=== PATIENT | male | born 1955 | race Caucasian/White ===

== ENCOUNTER 2021-03-24 07:51 | Emergency (ER) | payer OTHER, SELFPAY ==
[2021-03-24 07:52] VITALS: PULSE 124; RESP 18; TEMP 36.3; O2SAT 99; BMI 28.4
[2021-03-24] MEDS: Ondansetron 4 MG/2 ML Vial IV (08:05)
[2021-03-24] MEDS: Ketorolac 30 MG/ML Syringe IV (08:05)
[2021-03-24] MEDS: 0.9% Normal Saline 1,000 ML 500 ML IV (08:08)
--- NOTE | 2021-03-24 08:09 | EDS_ITS ---
HPI History of Present Illness Chief Complaint: Flank Pain Informant: patient Narrative Narrative: Patient presents with left flank pain. He was awoken this morning at approximately 6 AM with pain in his posterior left back area. It is now moved around to the front of his left lower quadrant. He describes it as a stabbing. He has had severe nausea but no actual vomiting. He did not note a change in his urine. He has not been lightheaded or dizzy. He has never had this before. No history of kidney stones or diverticular disease. He is on Xarelto due to a history of heart disease and stents. Nothing makes the pain better or worse. [facility] Medical History HTN (hypertension) Home Medications ondansetron 4 mg PO Q8H PRN #10 tab 03/24/21 [Rx Last Taken Unknown] oxycodone-acetaminophen [Percocet] 1 tab PO Q6H PRN 3 Days #10 tab 03/24/21 [Rx Last Taken Unknown] tamsulosin [Flomax] 0.4 mg PO DAILY #7 cap 03/24/21 [Rx Last Taken Unknown] Allergy/AdvReac Type Severity Reaction Status Date / Time No Known Allergies Allergy Verified 03/24/21 07:55 Surgical History History of cardiac cath History of heart artery stent Social History Smoking Status: Never smoker ROS ROS ED Constitutional Constitutional ED: Denies chills or fever(s) Cardiovascular Cardiovascular: Denies chest pain or palpitations Respiratory/Chest Respiratory/Chest: Denies cough or dyspnea Gastrointestinal Gastrointestinal: Reports abdominal pain and nausea; Denies diarrhea or vomiting Genitourinary Genitourinary ED: Denies dysuria or hematuria Musculoskeletal Musculoskeletal: Reports back pain and other Details: Pain started in the back and is now moved around to the left lower quadrant area ; Denies arthralgias, myalgias or neck pain Integumentary Denies rash Neurologic Neurologic: Denies paresthesias or weakness Psychiatric Psychiatric: Denies depression Endocrine Endocrinology: Denies polydipsia or polyuria Allergic/Immunologic Allergic/Immunologic ED: Denies urticaria EXAM Physical Exam Const Vital Signs: 03/24/21 07:52 Temperature 97.4 F L Temperature Source Temporal Pulse Rate 124 H Respiratory Rate 18 Pulse Ox 99 Oxygen Delivery Method Room Air Patient is rolling on the bed a little bit [id number]. He looks very uncomfortable. Positive well nourished and well developed General Appearance ED: well developed; Negative for NAD HEENT Reports moist mucous membranes Eyes General Eye ED: Negative for pale conjunctiva Neck no JVD Resp normal respiratory effort Cardio regular rate and regular rhythm GI normal to inspection, nondistended, normoactive bowel sounds and non-tender GI Narrative: Despite his significant discomfort, there is not a change with palpation. There is no palpable notable tenderness. Palpation: soft Extremity normal to inspection Extremity Narrative: Normal peripheral pulses. No swelling. Neuro oriented x3 Sensorium / Orientation: alert Psych mental status grossly normal Skin no rashes or lesions noted MDM MDM MDM Narrative Medical decision making narrative: I checked him to see the patient but he was over at CAT scan. His son stated that his pain was still there even about 10 minutes after the morphine. I went back to check him when he came back from CAT scan. At this time his pain is doing better. He states he still feels it in aches. But is nowhere near as bad. He looks calm and relaxed. He is thirsty and his nausea is gone. His blood work is overall unremarkable. I am waiting for final read on his CT. I looked at his images. He does have some hydronephrosis on the left with stranding and a small stone that looks like it is really perched right at the junction of the ureter and the bladder on the left. It looks mostly within the bladder at this time. CT does show findings consistent with 2 mm stone and the stone looks to be in the bladder. Patient's checked again. He states even the sharp pain in his left lower quadrant is gone. He just has mild soreness. I did discuss reasons to return including fevers chills pain nausea vomiting or other concerns. I will still get him pain meds as I suspect he will have some lingering pain. He can strain urine. I will start Flomax to increase chance of passage. I also found out he has been drinking more tea recently which we recommend he decrease. Lab Data Labs: Laboratory Results - last 24 hr 03/24/21 03/24/21 08:00 08:00 WBC 8.9 RBC 5.34 Hgb 15.7 Hct 45.5 MCV 85.2 MCH 29.4 MCHC 34.5 RDW Std Deviation 39.4 RDW Coeff of Robert 12.8 Plt Count 340 MPV 9.9 Immature Gran % (Auto) 0.300 Neut % (Auto) 64.2 Lymph % (Auto) 24.0 [place] % (Auto) 9.0 Eos % (Auto) 2.1 Baso % (Auto) 0.4 Absolute Neuts (auto) 5.7 Absolute Lymphs (auto) 2.14 Nucleated RBC % 0 Sodium 142 Potassium 3.5 Chloride 106 Carbon Dioxide 23.0 Anion Gap 13 BUN 15 Creatinine 1.18 Estim Creat Clear Calc 69.42 Est GFR (MDRD) Af Amer 80 Est GFR (MDRD) Non-Af 66 BUN/Creatinine Ratio 12.7 Glucose 138 H Calcium 9.0 Radiography Diagnostic Testing: Clinical Impression(s) from Imaging Studies Abdomen/Pelvis CT 03/24/21 08:09 IMPRESSION: Left hydronephrosis and hydroureter with perinephric stranding secondary to a recently passed calculus which is at the base of the bladder on the left side. Small umbilical hernia and small right inguinal hernia containing fat. Prostatic calcification. Electronically Signed: Faustino Decker MD at 8:57 EST , Service support , Discharge Plan Triage Chief Complaint: Flank Pain ED Provider: Ahsan Seals Dx/Rx/DC Orders Clinical Impression: Kidney stone on left side Instructions: ED Kidney Stone w/ Colic Prescriptions: New oxycodone-acetaminophen [Percocet] 5-325 mg tablet 1 tab PO Q6H PRN (Reason: pain) 3 Days Qty: 10 RF: 0 ondansetron 4 mg tablet,disintegrating 4 mg PO Q8H PRN (Reason: nausea and vomiting) Qty: 10 RF: 0 tamsulosin [Flomax] 0.4 mg capsule 0.4 mg PO DAILY Qty: 7 RF: 0 Referrals: David Kuo MD [STAFF PHYSICIAN] - 3-5 Days if not improving Disposition Disposition: Home, Self Care
--- NOTE | 2021-03-24 08:09 | CT_ITS ---
STUDY: CT ABDOMEN AND PELVIS WITHOUT CONTRAST REASON FOR EXAM: Male, 65 years old. Abdominal pain. RADIATION DOSAGE (If Supplied By Facility): CTDIvol = ( 12.11 ) mGy, DLP = ( 701.92 ) mGycm TECHNIQUE: Transaxial images were obtained from the dome of the diaphragm to the symphysis pubis without oral contrast, and without intravenous contrast. Sagittal and coronal images were reconstructed. Individualized dose optimization techniques were used for this CT. COMPARISON: None. FINDINGS: Calcified subcarinal lymph nodes. Coronary artery calcification. Normal liver. Normal gallbladder and extrahepatic biliary system. Normal spleen. Normal pancreas. Normal bilateral adrenal glands. Normal right kidney. There is engorgement of the left kidney. Mild degree of left perinephric stranding. There is evidence of left hydronephrosis and left hydroureter down to the ureterovesical junction. A 2 mm calculus is seen at the base of the bladder on the left side suggestive of a recently passed left ureteral calculus. There is a small hiatal hernia. Normal small intestine. Normal colon. The appendix is visualized and appears normal. There is scattered atherosclerotic calcification of the abdominal aorta, without a demonstrated aneurysm. Normal inferior vena cava. Normal retroperitoneum. Normal urinary bladder. There is enlargement of the prostate gland. It measures 4.4 cm x 4.5 cm. Central prostatic calcifications are seen. There is a small umbilical hernia containing fat. Small right inguinal hernia containing fat. There are mild degenerative changes of the visualized lumbar spine. CT/Abdomen/Pelvis without Cont IMPRESSION: Left hydronephrosis and hydroureter with perinephric stranding secondary to a recently passed calculus which is at the base of the bladder on the left side. Small umbilical hernia and small right inguinal hernia containing fat. Prostatic calcification. Electronically Signed: Faustino Decker MD at 8:57 EST , Service support ,
[2021-03-24 08:13] LABS: Absolute Lymphocyte Count 2.14 X10^3/uL (0.83-4.51); Absolute Neutrophil Count 5.7 X10^3/uL (2.0-7.7); Basophil# 0.04 X10^3/uL; Basophil% 0.4 % (0-1); Eosinophil# 0.19 X10^3/uL; Eosinophils% 2.1 % (0-5); Hematocrit 45.5 % (40-54); Hemoglobin 15.7 g/dL (13.0-16.5); Lymphocyte # 2.14 X10^3/ul (0.83-4.51); Mean Corp Hgb Conc 34.5 g/dL (32-36); Mean Corpuscular Hgb 29.4 pg (27.0-32.0); Mean Corpuscular Volume 85.2 fL (80-94); Mean Platelet Vol. 9.9 fl (6.2-12.0); NRBC Flagged by Analyzer 0 % (0-5); Neutrophil # 5.73 X10^3/uL (2.7-7.7); Neutrophil % 64.2 % (47-70); Platelet Count 340 K/mm3 (150-450); RBC Distribution Width CV 12.8 % (11.6-14.6); RBC Distribution Width SD 39.4 fl (35.1-43.9); Red Blood Count 5.34 M/mm3 (4.6-6.2); White Blood Count 8.9 K/mm3 (4.4-11.0)
[2021-03-24] MEDS: Morphine 4 MG/ML Syringe IV (08:13)
[2021-03-24 08:23] LABS: Anion Gap 13 (5-15); BUN 15 mg/dL (7-18); BUN/Creat Ratio 12.7 RATIO (10-20); Chloride 106 mmol/L (98-107); Creatinine, Serum 1.18 mg/dL (0.70-1.30); EST Glomerular Filtration Rate 66 mL/min (>60); Est Glom Filt Rate - Afr Amer 80 mL/min (>60); Estimated Creatinine Clearance 69.42 ml/min; Glucose 138 mg/dL (74-106); Potassium 3.5 mmol/L (3.5-5.1); Sodium Level 142 mmol/L (136-145)
== END 2021-03-24 10:30 | disposition home or self-care (01) ==
PROVIDERS: Emergency Provider Emergency Medicine
DX: N13.2 Hydronephrosis with renal and ureteral calculous obstruction (principal); I51.9 Heart disease, unspecified; Z95.5 Presence of coronary angioplasty implant and graft; Z79.01 Long term (current) use of anticoagulants
CPT/HCPCS: 74176; 80048; 85025; 96361; 96374; 96375; 99283; J7030; A4216; J2405

== ENCOUNTER 2021-04-06 17:59 | Outpatient (CLI) | payer OTHER, SELFPAY ==
[2021-04-06 18:26] VITALS: BP 141/99; PULSE 72; RESP 16; TEMP 36.8; O2SAT 99; BMI 29.2
[2021-04-06] MEDS: 0.9% Saline Lock 10 ML Syringe IV (18:41)
[2021-04-06 19:14] VITALS: BP 140/90; PULSE 61; RESP 16; TEMP 36.9; O2SAT 98
[2021-04-06 20:09] VITALS: BP 156/91; PULSE 70; RESP 16; TEMP 36.9; O2SAT 100
== END 2021-04-06 20:15 | disposition home or self-care (01) ==
LOC: MS3OUT 18:00 → MS3 18:00
PROVIDERS: Referring Provider Nurse Practitioner Adult Health; Visit Provider Nurse Practitioner Adult Health
DX: Z23 Encounter for immunization (principal); U07.1 COVID-19
CPT/HCPCS: J7050; M0243; A4216; Q0244

== ENCOUNTER 2023-01-19 16:07 | Emergency (ER) | payer MEDICARE, OTHER, SELFPAY ==
[2023-01-19] VITALS (7 sets, daily range): BP systolic 137–155; BP diastolic 69–87; PULSE 60–69; RESP 15–18; TEMP 36.1; O2SAT 98; BMI 28.5
--- NOTE | 2023-01-19 16:21 | NURSING ---
NO OLD EKG
--- NOTE | 2023-01-19 16:29 | RAD_ITS ---
INDICATION: chest pain EXAMINATION/TECHNIQUE: X-RAY - XR Chest 1 View COMPARISON: FINDINGS: LINES/DEVICES: None. LUNGS: No consolidation, edema or effusion. No pneumothorax. MEDIASTINUM AND CARDIOVASCULAR STRUCTURES: Cardiac silhouette not enlarged. Central airways and mediastinal contour are unremarkable. BONES AND SOFT TISSUES: Unremarkable. RAD/Chest 1 View (Portable) IMPRESSION: No radiographic evidence of acute cardiopulmonary disease. Electronically Signed: Emiliano Crooks DO at 16:39 EDT Reading Location ID and State: [facility] / [place] Tel [phone], Service support ,
[2023-01-19 16:45] LABS: Basophil# 0.05 X10^3/uL; Basophil% 0.5 % (0-1); Eosinophil# 0.23 X10^3/uL; Eosinophils% 2.2 % (0-5); Hemoglobin 14.6 g/dL (13.0-16.5); Lymphocyte % 19.3 % (19-41); Mean Corp Hgb Conc 33.2 g/dL (32-36); Mean Corpuscular Hgb 29.5 pg (27.0-32.0); Mean Corpuscular Volume 88.9 fL (80-94); Mean Platelet Vol. 10.7 fl (6.2-12.0); Monocyte# 1.02 X10^3/uL; Monocyte% 9.9 % (0-10); NRBC Flagged by Analyzer 0 % (0-5); Neutrophil # 7.01 X10^3/uL (2.7-7.7); Neutrophil % 67.7 % (47-70); Platelet Count 322 K/mm3 (150-450); RBC Distribution Width CV 12.8 % (11.6-14.6); RBC Distribution Width SD 41.6 fl (35.1-43.9); Red Blood Count 4.95 M/mm3 (4.6-6.2); White Blood Count 10.4 K/mm3 (4.4-11.0)
[2023-01-19 17:01] LABS: Anion Gap 3 (5-15); BUN 19 mg/dL (7-18); BUN/Creat Ratio 18.4 RATIO (10-20); Calcium,Total 8.9 mg/dL (8.5-10.1); Chloride 109 mmol/L (98-107); Creatinine, Serum 1.03 mg/dL (0.70-1.30); EST Glomerular Filtration Rate 77 mL/min (>60); Est Glom Filt Rate - Afr Amer 93 mL/min (>60); Estimated Creatinine Clearance 75.14 ml/min; Glucose 99 mg/dL (74-106); Potassium 4.2 mmol/L (3.5-5.1); Sodium Level 138 mmol/L (136-145); Troponin-I HS (w/2H Reflex) 10 pg/mL (3.0-78.0)
[2023-01-19 18:34] LABS: Reflex Troponin-HS? (from REC) Y
[2023-01-19 19:07] LABS: Troponin-I HS 8 pg/mL (3.0-78.0)
--- NOTE | 2023-01-19 20:47 | ED.VIS.CHEST ---
HPI History of Present Illness Chief Complaint: Chest Pain Narrative Narrative: 67-year-old male with history of CAD, hypertension, hyperlipidemia, cardiac stent presenting with left upper chest pain and left shoulder pain which has been present for 3 days. It has not really changed over the last 3 days. It has been constant. Patient was noted by family to be very sweaty yesterday when mixing some grout. Patient himself admits that this was a hard work and he did it for about an hour. He denies cough, fever, shortness of breath. He states that this pain did not increase when he was having the symptoms. He states he did try a heating pad on the left shoulder which made the symptoms worse. Denies lightheadedness, dizziness. PFSH PFS Medical History COVID-19 HTN (hypertension) Home Medications amlodipine 2.5 mg tablet 2.5 mg PO DAILY 03/15/21 [History Last Taken Unknown] aspirin 81 mg tablet,delayed release (Adult Aspirin Regimen) 81 mg PO DAILY 03/15/21 [History Last Taken Unknown] atenolol 25 mg tablet 25 mg PO DAILY 03/15/21 [History Last Taken Unknown] atorvastatin 10 mg tablet 10 mg PO DAILY 03/15/21 [History Last Taken Unknown] irbesartan 75 mg tablet 75 mg PO DAILY 03/15/21 [History Last Taken Unknown] dexamethasone 4 mg tablet (Decadron) 4 mg PO DAILY #5 tabs 04/05/21 [Rx Last Taken Unknown] isosorbide mononitrate 30 mg tablet,extended release 24 hr 30 mg PO DAILY 04/06/21 [History Last Taken Unknown] Allergy/AdvReac Type Severity Reaction Status Date / Time No Known Allergies Allergy Verified 01/19/23 16:08 Surgical History History of cardiac cath History of heart artery stent Social History Smoking Status: Never smoker ROS ROS ED Constitutional Constitutional ED: Denies chills, fever(s) or sweats Eyes Eyes: Denies blurry vision or change in vision ENT ENT ED: Denies ear pain or sore throat Cardiovascular Cardiovascular: Reports chest pain; Denies palpitations or racing heartbeat Respiratory/Chest Respiratory/Chest: Denies cough, dyspnea or sputum Gastrointestinal Gastrointestinal: Denies abdominal pain, constipation, diarrhea, nausea or vomiting Genitourinary Genitourinary ED: Denies dysuria, hematuria or urinary frequency Musculoskeletal Musculoskeletal: Reports other Details: Shoulder pain ; Denies arthralgias, myalgias or neck pain Integumentary Denies abscess, Abrasions or rash Neurologic Neurologic: Denies headache(s), paresthesias or weakness Psychiatric Psychiatric: Denies anxiety, depression, suicidal ideation or suicidal thoughts Endocrine Endocrinology: Denies polydipsia or polyuria EXAM Physical Exam Const Vital Signs: 01/19/23 16:09 01/19/23 16:16 01/19/23 16:32 Temperature 97 F L Temperature Source Temporal Pulse Rate 69 Respiratory Rate 18 Respiratory Effort Normal Non-Labored Blood Pressure 154/72 H Blood Pressure Mean 99 Pulse Ox 98 98 Oxygen Delivery Method Room Air Room Air 01/19/23 17:07 01/19/23 18:00 01/19/23 19:00 Temperature Temperature Source Pulse Rate 60 62 63 Respiratory Rate 17 17 15 Respiratory Effort Blood Pressure 137/87 H Blood Pressure Mean 103 Pulse Ox 98 98 98 Oxygen Delivery Method Room Air Room Air Room Air 01/19/23 20:00 Temperature Temperature Source Pulse Rate 64 Respiratory Rate 16 Respiratory Effort Blood Pressure 155/69 H Blood Pressure Mean 97 Pulse Ox 98 Oxygen Delivery Method Room Air Positive well nourished General Appearance ED: NAD; Negative for pallor HEENT Reports moist mucous membranes normocephalic and atraumatic Eyes PERRL General Eye ED: Negative for pale conjunctiva Chest Wall inspection of chest normal and palpation of chest normal Resp normal respiratory effort and clear to auscultation bilaterally Cardio regular rate and regular rhythm Extremity normal to inspection General Extremety ED: Negative for edema or pulses abnormal General Extremity: Negative for edema or pulses abnormal Neuro oriented x3 and CN's II-XII intact bilaterally Sensorium / Orientation: awake and alert Motor Exam: strength 5/5 throughout Psych mental status grossly normal Skin no rashes or lesions noted General Skin Exam: Negative for jaundice or pallor Heart Score History: Slightly/Non-Suspicious ECG: Normal Age: </= 45 years Risk Factors: >/= 3 Risk Factors or History of CAD Troponin: </= Normal Limit Score: 2 MDM MDM MDM Narrative Medical decision making narrative: With left upper chest pain. Differential occludes acute coronary syndrome, musculoskeletal pain, pneumonia. PE considered however patient is PERC negative. CBC was obtained to assess a blood cell count, hemoglobin, platelets. BMP to assess renal function electrolytes. High-sensitivity troponin and EKG were obtained to assess for ischemia and dysrhythmia. Chest x-ray was obtained and shows no acute process. EKG shows a sinus rhythm with a ventricular rate of 64 bpm without sign of ischemic change or ectopy on my interpretation. CBC and BMP ultimately unremarkable. Initial high-sensitivity troponin is 10 and delta troponin is 8. HEART score of 2. I recommended that the patient follow-up with his primary application support who is out of town and return precautions were discussed. Patient amenable to this. Impression: 1. Chest pain Lab Data Attestation: I reviewed the patient's lab results. Labs: Laboratory Results - last 24 hr 01/19/23 01/19/23 01/19/23 16:27 17:54 18:30 WBC 10.4 RBC 4.95 Hgb 14.6 Hct 44.0 MCV 88.9 MCH 29.5 MCHC 33.2 RDW Std Deviation 41.6 RDW Coeff of Robert 12.8 Plt Count 322 MPV 10.7 Immature Gran % (Auto) 0.400 Neut % (Auto) 67.7 Lymph % (Auto) 19.3 [place] % (Auto) 9.9 Eos % (Auto) 2.2 Baso % (Auto) 0.5 Absolute Neuts (auto) 7.0 Absolute Lymphs (auto) 2.00 Nucleated RBC % 0 Sodium 138 Potassium 4.2 Chloride 109 H Carbon Dioxide 26.0 Anion Gap 3 L BUN 19 H Creatinine 1.03 Estim Creat Clear Calc 75.14 Est GFR (MDRD) Af Amer 93 Est GFR (MDRD) Non-Af 77 BUN/Creatinine Ratio 18.4 Glucose 99 Calcium 8.9 Troponin I High Sens 10 Cancelled 8 Radiography Diagnostic Testing: Clinical Impression(s) from Imaging Studies Chest X-Ray 01/19/23 16:29 IMPRESSION: No radiographic evidence of acute cardiopulmonary disease. Electronically Signed: Emiliano Crooks DO at 16:39 EDT , Discharge Plan Triage Chief Complaint: Chest Pain ED Provider: Niles Kelly Dx/Rx/DC Orders Instructions: ED Chest Pain, Uncertain Cause Prescriptions: No Action amlodipine 2.5 mg tablet 2.5 mg PO DAILY aspirin [Adult Aspirin Regimen] 81 mg tablet,delayed release (DR/EC) 81 mg PO DAILY atenolol 25 mg tablet 25 mg PO DAILY atorvastatin 10 mg tablet 10 mg PO DAILY irbesartan 75 mg tablet 75 mg PO DAILY dexamethasone [Decadron] 4 mg tablet 4 mg PO DAILY Qty: 5 0RF isosorbide mononitrate 30 mg tablet extended release 24 hr 30 mg PO DAILY Primary Care Provider: Care Physician,No Primary Referrals: Care Physician,No Primary [Primary Care Provider] - Disposition Disposition: Home, Self Care
== END 2023-01-19 20:59 | disposition home or self-care (01) ==
PROVIDERS: Emergency Provider Student in an Organized Health Care Education/Training Program; Visit Provider Student in an Organized Health Care Education/Training Program
DX: R07.9 Chest pain, unspecified (principal); I25.10 Atherosclerotic heart disease of native coronary artery without angina pectoris; E78.5 Hyperlipidemia, unspecified; Z95.5 Presence of coronary angioplasty implant and graft; I10 Essential (primary) hypertension; Z79.899 Other long term (current) drug therapy; Z79.82 Long term (current) use of aspirin
CPT/HCPCS: 71045; 80048; 84484; 85025; 93005; 99284; J7030; A4216

== ENCOUNTER → 2023-12-14 | Outpatient (CLI) | payer MEDICARE, OTHER, SELFPAY ==
[2023-12-14 11:11] LABS: ALB/GLOB Ratio 1.3 RATIO (0.9-2.4); AST(SGOT) 25 U/L (15-37); Alanine Aminotransfer ALT/SGPT 37 U/L (16-61); Albumin, Serum 3.7 g/dL (3.2-5.0); Alkaline Phosphatase 90 U/L (45-117); Anion Gap 5 (5-15); BUN 15 mg/dL (7-18); BUN/Creat Ratio 16.9 RATIO (10-20); Calcium,Total 9.2 mg/dL (8.5-10.1); Chloride 107 mmol/L (98-107); Cholesterol 138 mg/dL (200); Creatinine, Serum 0.89 mg/dL (0.70-1.30); EST Glomerular Filtration Rate 91 mL/min (>60); Est Glom Filt Rate - Afr Amer 110 mL/min (>60); Globulin 2.9 g/dL (2.2-4.2); Glucose 87 mg/dL (74-106); High Density Lipoprotein 51 mg/dL; Protein, Total 6.6 g/dL (6.4-8.2); Sodium Level 140 mmol/L (136-145); Triglycerides 102 mg/dL; Very Low Density Lipoprotein 20 mg/dL (5-40)
== END | disposition home or self-care (01) ==
PROVIDERS: Referring Provider Internal Medicine Cardiovascular Disease; Visit Provider Internal Medicine Cardiovascular Disease
DX: I49.3 Ventricular premature depolarization (principal); R73.9 Hyperglycemia, unspecified; E78.00 Pure hypercholesterolemia, unspecified; I10 Essential (primary) hypertension; I25.10 Atherosclerotic heart disease of native coronary artery without angina pectoris
CPT/HCPCS: 36415; 80053; 80061; 83735; 84443

== ENCOUNTER → 2024-01-02 | Outpatient (CLI) | payer MEDICARE, OTHER, SELFPAY | END | disposition home or self-care (01) | LOC: PSN 07:29 | PROVIDERS: Referring Provider Internal Medicine Cardiovascular Disease; Visit Provider Internal Medicine Cardiovascular Disease | DX: I49.3 Ventricular premature depolarization (principal); E78.5 Hyperlipidemia, unspecified; I10 Essential (primary) hypertension; Z95.5 Presence of coronary angioplasty implant and graft; I25.10 Atherosclerotic heart disease of native coronary artery without angina pectoris | CPT/HCPCS: 93225; 93226 ==

== ENCOUNTER → 2024-01-04 | Outpatient (CLI) | payer MEDICARE, OTHER, SELFPAY ==
--- NOTE | 2024-01-04 06:42 | ECHOD_ITS ---
Reason For Study: CAD/ASHD Procedure This was a 2D Doppler, Color Flow transthoracic echocardiogram. Exam performed in department. Left Ventricle Normal LV size. Mild concentric left ventricular hypertrophy. The left ventricular ejection fraction is 65 %. Normal diastology for age. Right Ventricle Normal right ventricle. Atria The left atrium is moderately enlarged. The right atrium is mildly enlarged. Mitral Valve Mild (1+) mitral valve insufficiency. Tricuspid Valve Trivial tricuspid valve insufficiency. Normal pulmonary artery pressure. Aortic Valve Focal thickening of the left coronary cusp of the aortic valve. No aortic valve stenosis or regurgitation. Pulmonic Valve The pulmonic valve is not well visualized. Great Vessels Normal sized aortic root. Pericardium/Pleural No pericardial effusion. MMode/2D Measurements & Calculations LVIDd: 4.7 cm IVSd: 1.2 cm Ao root diam: 3.5 cm LVIDs: 3.1 cm LVPWd: 1.2 cm RVDd: 3.3 cm FS: 34.4 % LAV(MOD-bp): 60.1 ml LVAd ap4: 34.3 cm2 LVAd ap2: 29.3 cm2 LAV(MOD-bp) Indexed: 28.2 ml/m2 LVLd ap4: 8.5 cm LVLd ap2: 8.2 cm LAV(MOD-sp2): 60.8 ml EDV(MOD-sp4): 111.7 ml EDV(MOD-sp2): 86.3 ml LAV(MOD-sp4): 56.0 ml EDV(sp4-el): 116.7 ml EDV(sp2-el): 88.9 ml LVAs ap4: 19.3 cm2 LVAs ap2: 14.0 cm2 LVLs ap4: 7.0 cm LVLs ap2: 6.6 cm ESV(MOD-sp4): 44.8 ml ESV(MOD-sp2): 27.3 ml ESV(sp4-el): 45.2 ml ESV(sp2-el): 25.2 ml EF(MOD-sp4): 59.9 % EF(MOD-sp2): 68.4 % EF(sp4-el): 61.3 % SV(MOD-sp4): 66.9 ml SV(MOD-sp2): 59.0 ml SV(sp4-el): 71.5 ml LA dimension(2D): 4.5 cm LA A4 area: 19.3 cm2 RA A4 area: 14.8 cm2 TAPSE: 2.2 cm Time Measurements MV dec time: 0.23 sec Doppler Measurements & Calculations MV E max ayden: 56.9 cm/sec Lat Peak E' Ayden: 9.4 cm/sec Med Peak E' Ayden: 7.6 cm/sec MV A max ayden: 67.9 cm/sec E/E' lat: 6.1 E/E' med: 7.5 MV E/A: 0.84 MV V2 max: 79.9 cm/sec MV P1/2t max ayden: 54.0 cm/sec Ao V2 max: 116.4 cm/sec MV max P.6 mmHg MV P1/2t: 60.1 msec Ao max P.4 mmHg MV V2 mean: 48.3 cm/sec MV dec slope: 263.0 cm/sec2 Ao V2 mean: 88.0 cm/sec MV mean P.0 mmHg Ao mean P.3 mmHg MV V2 VTI: 16.8 cm MVA(P1/2t): 3.7 cm2 Ao V2 VTI: 25.1 cm AV (velocity ratio): 0.87 LV V1 max: 83.4 cm/sec PA V2 max: 117.7 cm/sec TR max ayden: 219.4 cm/sec LV V1 max P.8 mmHg PA V2 mean: 75.5 cm/sec TR max P.3 mmHg LV V1 mean P.8 mmHg LV V1 mean: 63.9 cm/sec LV V1 VTI: 21.8 cm ECHO/Echo Complete Interpretation Summary Mild concentric left ventricular hypertrophy. The left ventricular ejection fraction is 65 %. The left atrium is moderately enlarged. The right atrium is mildly enlarged. Mild (1+) mitral valve insufficiency. Focal thickening of the left coronary cusp of the aortic valve. No aortic valve stenosis or regurgitation. Ordering Physician: Leonard Kendrick Referring Physician: OTD Performed By: Arnoldo, Monique, RDCS, RVT
--- NOTE | 2024-01-04 17:51 | STRESSREP_ITS ---
Stress Test Report Exercise myocardial perfusion stress test. 68-year-old man with a history of chest pain Stress protocol: Resting EKG demonstrates normal sinus rhythm with a rate of 67 bpm, occasional PVC resting blood pressure is 156/94 mmHg. The patient exercised according to the regular Issa protocol for a total duration of 8 minutes attaining a maximum heart rate of 133 bpm which was 86% of maximum predicted heart rate; the maximum workload was 10.1 metabolic equivalents. At rest there were no ST or T wave changes noted to suggest ischemia and at peak exercise upsloping ST changes only were noted which did not meet the criteria for ischemia. No clinical angina was noted the test was terminated due to the target heart rate being achieved/fati sulma. The peak blood pressure was 190/90 mmHg. Rate-pressure product was 23,900. Myocardial perfusion protocol. 13.9 mCi of technetium 99m sestamibi was injected at rest. The patient exercised according to regular Issa protocol for total duration of 8 minutes and at peak exercise 41.4 mCi of technetium 99m sestamibi was injected stress images were obtained stress and rest images were reconstructed in comparing the short axis vertical long and horizontal long axis. Gated images were also obtained. Perfusion SPECT analysis: Review of the stress images demonstrate normal uptake of tracer noted in all areas of the myocardium. The resting images similarly demonstrate normal uptake of tracer noted in all areas of the myocardium. No areas of reversibility are noted to suggest ischemia no previous infarct was noted. Gated SPECT analysis: The gated ejection fraction is 60%. Conclusion: Normal exercise myocardial perfusion stress test at a high workload Preserved ejection fraction.
== END | disposition home or self-care (01) ==
LOC: CVS 06:40
PROVIDERS: Referring Provider Internal Medicine Cardiovascular Disease; Visit Provider Internal Medicine Cardiovascular Disease
DX: I25.10 Atherosclerotic heart disease of native coronary artery without angina pectoris (principal); I49.3 Ventricular premature depolarization; Z95.5 Presence of coronary angioplasty implant and graft; E78.00 Pure hypercholesterolemia, unspecified; I10 Essential (primary) hypertension
CPT/HCPCS: 78452; 93017; 93306; A9500; A4216

== ENCOUNTER 2024-05-05 15:56 | Emergency (ER) | payer MEDICARE, OTHER, SELFPAY ==
[2024-05-05 15:57] VITALS: BP 161/113; PULSE 76; RESP 18; TEMP 36.4; O2SAT 97; BMI 29.9
--- NOTE | 2024-05-05 16:13 | CT_ITS ---
STUDY: CT Abdomen And Pelvis W/O Contrast Injection 05/05/2024 5:22 PM REASON FOR EXAM: Male, 68 years old. Abdominal pain left flank pain, no prev hx of ks Individualized dose optimization techniques were used for this CT. COMPARISON: 03/24/21 TECHNIQUE: CT Abdomen And Pelvis W/O Contrast Injection FINDINGS: There are atherosclerotic calcifications of visualized coronary arteries. The visualized portions of the heart are within normal limits. Normal liver. Normal gallbladder and extrahepatic biliary system. Normal spleen. Normal pancreas. Normal bilateral adrenal glands. Stable right parapelvic cyst. Multiple stable left peripelvic cyst. Moderate left hydronephroureter caused by a 3 mm UVJ stone/urinary bladder stone. There are hypodensities in the left kidney. These are consistent for cysts. No follow up required. Non obstructive 2 mm left renal parenchymal stones. Normal visualized stomach. Normal small intestine. Stool throughout the colon. The appendix is visualized and appears normal. There are calcifications of the abdominal aorta. This is consistent for atherosclerotic disease. There is NO abdominal aortic aneurysm. Vascular workup can be obtained based on clinical correlation. Normal inferior vena cava. Subcentimeter mesenteric lymph nodes. Urinary bladder wall has wall thickening. This can be related to a partially contractile state. However, a cystitis is not excluded. Urinalysis should be performed in an effort to exclude cystitis. There are prostatic calcifications. There is an umbilical hernia containing fat. There are diffuse degenerative changes of the visualized lumbar spine. There is bilateral neural foraminal stenosis at L4-5 and L5-S1. CT/Abdomen/Pelvis without Cont IMPRESSION: (NOT LISTED IN ORDER OF SIGNIFICANCE) Stable right parapelvic cyst. Multiple stable left peripelvic cyst. Moderate left hydronephroureter caused by a 3 mm UVJ stone/urinary bladder stone. Nonobstructive left renal stones. Urinary bladder wall has wall thickening. This can be related to a partially contractile state. However, a cystitis is not excluded. Urinalysis should be performed in an effort to exclude cystitis. Electronically Signed: Rick Drake MD at 17:26 EST ,
--- NOTE | 2024-05-05 16:13 | EX.ED.DYSGE1 ---
HPI History of Present Illness Chief Complaint: Flank Pain Detail of Chief Complaint: Left flank pain Informant: patient Narrative Narrative: Patient presents to the emergency department complaint left flank pain that started yesterday. Patient states the pain became more severe today and rated a 7 or 8 out of 10 prior to coming in. Currently rates it a 4 out of 10. He denies urinary symptoms. Has never had pain like this before. He denies nausea or vomiting. Denies fever. No history of kidney stones. Denies back injury. [facility] Medical History Former smoker Prediabetes Dyslipidemia Seasonal allergies Hyperglycemia Pure hypercholesterolemia CAD (coronary artery disease) Laceration of right middle finger BMI 29.0-29.9,adult COVID-19 HTN (hypertension) Home Medications ?Medication ?Instructions ?Recorded ?Last Taken ?Type aspirin 81 mg tablet,delayed 81 mg PO DAILY 03/15/21 Unknown History release (Adult Aspirin Regimen) isosorbide mononitrate 30 mg 30 mg PO DAILY 04/06/21 Unknown History tablet,extended release 24 hr amlodipine 5 mg tablet 5 mg PO DAILY #90 tabs 12/14/23 Unknown Rx atorvastatin 80 mg tablet 80 mg PO DAILY 12/14/23 Unknown History irbesartan 300 mg tablet 300 mg PO DAILY 12/14/23 Unknown History metoprolol succinate 100 mg 100 mg PO DAILY #90 tabs 12/14/23 Unknown Rx tablet,extended release 24 hr hydrocodone-acetaminophen 5-325mg 1 tab PO Q4H PRN PRN Pain 2 days 05/05/24 Unknown Rx 5mg-325mg #10 TABLETS hydrocodone-acetaminophen 5-325mg 1 tab PO Q4H PRN PRN Pain 2 days 05/05/24 Unknown Rx 5mg-325mg #10 TABLETS ondansetron 4 mg disintegrating 4 mg PO Q8H PRN PRN Nausea #10 tabs 05/05/24 Unknown Rx tablet ondansetron 4 mg disintegrating 4 mg PO Q8H PRN PRN Nausea #10 tabs 05/05/24 Unknown Rx tablet Allergy/AdvReac Type Severity Reaction Status Date / Time No Known Allergies Allergy Verified 05/05/24 15:57 Family History (Updated 12/14/23 @ 09:27 by Akanksha Suarez RN) Mother Hypertension CAD (coronary artery disease) Hyperlipidemia Surgical History Hx of colonoscopy with polypectomy (~12/08/22) S/P skin biopsy Hx of vasectomy (~1982) History of heart artery stent (~03/25/20) History of cardiac cath (~03/25/20) Social History (Updated 12/14/23 @ 09:28 by Akanksha Suarez RN) Smoking Status: Former smoker alcohol intake: current alcohol intake frequency: a few times a week Alcohol type: beer substance use type: does not use ROS ROS ED Review of Systems ROS Unobtainable: other Constitutional Constitutional ED: Reports lethargy; Denies chills, fever(s), sweats or weight loss Eyes Eyes: Denies blurry vision, change in vision or diplopia ENT ENT ED: Denies rhinorrhea or sore throat Cardiovascular Cardiovascular: Denies chest pain, orthopnea or racing heartbeat Respiratory/Chest Respiratory/Chest: Denies cough, dyspnea, dyspnea on exertion, orthopnea or sputum Gastrointestinal Gastrointestinal: Denies abdominal pain, diarrhea, nausea or vomiting Genitourinary Genitourinary ED: Denies dysuria, hematuria or urinary frequency Musculoskeletal Musculoskeletal: Reports back pain; Denies arthralgias, myalgias or neck pain Integumentary Denies abscess, Abrasions or rash Neurologic Neurologic: Denies headache(s) or weakness Psychiatric Psychiatric: Denies anxiety, depression or suicidal thoughts Endocrine Endocrinology: Denies polydipsia, polyphagia or polyuria Hematologic/Lymphatic Hematologic/Lymphatic: Denies easy bleeding, easy bruising or lymphadenopathy Allergic/Immunologic Allergic/Immunologic ED: Denies mouth swelling, tongue swelling or urticaria EXAM Physical Exam Const Vital Signs: 05/05/24 15:57 Temperature 97.5 F L Temperature Source Temporal Pulse Rate 76 Respiratory Rate 18 Blood Pressure 161/113 H Blood Pressure Mean 129 Pulse Ox 97 Oxygen Delivery Method Room Air Positive well nourished and well developed General Appearance ED: well developed and NAD HEENT Reports TM's clear and moist mucous membranes normocephalic and atraumatic; Negative for trauma or tenderness Tympanic Membrane ED: Yes TM's clear Eyes PERRL and EOMs intact bilaterally General Eye ED: Negative for pale conjunctiva or scleral icterus Neck no lymphadenopathy, supple and no JVD General: Negative for tenderness Chest Wall inspection of chest normal and palpation of chest normal Chest: Negative for tenderness Resp normal respiratory effort and clear to auscultation bilaterally Effort and Inspection: Negative for respiratory distress or pain with movement Auscultation: Negative for rhonchi, wheezes or diminished lung sounds Cardio regular rate, regular rhythm, S1 normal heart sound, S2 normal heart sound and no murmurs Peripheral Pulses: pulses 2+ throughout GI normal to inspection, nondistended, normoactive bowel sounds, soft to palpation, non-tender, non-distended and no masses Back/Spine no thoracic nor lumbar tenderness Back/Spine Narrative: Positive CVA tenderness on the left Extremity normal to inspection General Extremety ED: Negative for edema General Extremity: Negative for edema Neuro oriented x3, CN's II-XII intact bilaterally, no sensory deficits noted and gait normal Sensorium / Orientation: awake, alert, oriented to person, oriented to place and oriented to time Motor Exam: strength 5/5 throughout and strength abnormal Psych mental status grossly normal Skin no rashes or lesions noted and no wounds MDM MDM MDM Narrative Medical decision making narrative: Patient presents with left flank pain that started yesterday. No history of kidney stones. In the differential would be kidney stone versus diverticulitis versus musculoskeletal back pain. IV line was established. Initially he just wanted something mild for pain and was given Toradol 15 mg IV. He subsequently developed more pain and was given 4 mg of morphine. CBC with differential obtained showed a white count of 12.2 with hemoglobin 15.5 and platelet count of 342. Chemistries unremarkable. Urinalysis was unremarkable. CT scan of the abdomen pelvis showed left hydroureter with 3 mm stone in the left UVJ/bladder. No other significant findings. Discussed results with patient. Given that the stone is almost completely passed into the bladder I feel that given the size it should pass without difficulty. Patient was given another dose of pain medication with Dilaudid 1 mg IV. He will be given urine strainers and a prescription for Zofran as well as [place] for pain. Will be referred to urology for follow-up. Vies return if worsening pain, fever, vomiting, or condition should worsen anyway. Lab Data Attestation: I reviewed the patient's lab results. Labs: Laboratory Results - last 24 hr 05/05/24 16:03 WBC 12.2 H RBC 5.25 Hgb 15.5 Hct 45.5 MCV 86.7 MCH 29.5 MCHC 34.1 RDW Std Deviation 40.8 RDW Coeff of Robert 13.0 Plt Count 342 MPV 10.4 Immature Gran % (Auto) 0.300 Neut % (Auto) 79.3 H Lymph % (Auto) 10.6 L Andrew % (Auto) 8.1 Eos % (Auto) 1.3 Baso % (Auto) 0.4 Absolute Neuts (auto) 9.7 H Absolute Lymphs (auto) 1.30 Nucleated RBC % 0 Sodium 139 Potassium 3.8 Chloride 106 Carbon Dioxide 28.0 Anion Gap 6 BUN 18 Creatinine 1.46 H Estim Creat Clear Calc 58.46 Est GFR (MDRD) Af Amer 62 Est GFR (MDRD) Non-Af 51 L BUN/Creatinine Ratio 12.3 Glucose 103 Calcium 9.1 Total Bilirubin 0.50 AST 28 ALT 46 Alkaline Phosphatase 103 Total Protein 6.8 Albumin 3.9 Globulin 2.9 Albumin/Globulin Ratio 1.3 Urine Color Yellow Urine Clarity Clear Urine pH 6.5 Ur Specific [place] 1.015 Urine Protein 100 H Urine Glucose (UA) Normal Urine Ketones Negative Urine Occult Blood 25 H Urine Nitrite Negative Urine Bilirubin Negative Urine Urobilinogen Normal Ur Leukocyte Esterase Negative Urine RBC 0-5 SEEN Urine WBC 0 SEEN Ur Squamous Epith Cells 0-5 SEEN Urine Bacteria 3+ Urine Mucus 1+ Radiography Diagnostic Testing: Clinical Impression(s) from Imaging Studies Abdomen/Pelvis CT 05/05/24 16:13 IMPRESSION: (NOT LISTED IN ORDER OF SIGNIFICANCE) Stable right parapelvic cyst. Multiple stable left peripelvic cyst. Moderate left hydronephroureter caused by a 3 mm UVJ stone/urinary bladder stone. Nonobstructive left renal stones. Urinary bladder wall has wall thickening. This can be related to a partially contractile state. However, a cystitis is not excluded. Urinalysis should be performed in an effort to exclude cystitis. Electronically Signed: Rick Drake MD at 17:26 EST , Discharge Plan Triage Chief Complaint: Flank Pain ED Provider: Freda Bell Dx/Rx/DC Orders Clinical Impression: Urolithiasis Instructions: ED Kidney Stone with Pain Prescriptions: New hydrocodone-acetaminophen 5-325 mg tablet 1 tab PO Q4H PRN PRN (Reason: Pain) 2 Days Qty: 10 0RF ondansetron 4 mg tablet,disintegrating 4 mg PO Q8H PRN PRN (Reason: Nausea) Qty: 10 0RF hydrocodone-acetaminophen 5-325 mg tablet 1 tab PO Q4H PRN PRN (Reason: Pain) 2 Days Qty: 10 0RF ondansetron 4 mg tablet,disintegrating 4 mg PO Q8H PRN PRN (Reason: Nausea) Qty: 10 0RF No Action aspirin [Adult Aspirin Regimen] 81 mg tablet,delayed release (DR/EC) 81 mg PO DAILY irbesartan 300 mg tablet 300 mg PO DAILY Patient Comments: TAKE 1 TABLET BY MOUTH EVERY DAY atorvastatin 80 mg tablet 80 mg PO DAILY Patient Comments: TAKE 1 TABLET BY MOUTH EVERY DAY metoprolol succinate 100 mg tablet extended release 24 hr 100 mg PO DAILY Qty: 90 3RF amlodipine 5 mg tablet 5 mg PO DAILY Qty: 90 3RF isosorbide mononitrate 30 mg tablet extended release 24 hr 30 mg PO DAILY Primary Care Provider: Care Physician,No Primary Referrals: David Kuo MD [Med Staff - Active Staff] - 5-7 Days Care Physician,No Primary [Primary Care Provider] - Print Language: Romansh Disposition Disposition: Home, Self Care
[2024-05-05] MEDS: Ketorolac 15 MG/ML Vial IV (16:19)
[2024-05-05 16:24] LABS: White Blood Cells 0 SEEN /hpf (0-5)
[2024-05-05 16:33] LABS: Absolute Neutrophil Count 9.7 X10^3/uL (2.0-7.7); Basophil# 0.05 X10^3/uL; Basophil% 0.4 % (0-1); Eosinophil# 0.16 X10^3/uL; Eosinophils% 1.3 % (0-5); Hematocrit 45.5 % (40-54); Hemoglobin 15.5 g/dL (13.0-16.5); Lymphocyte % 10.6 % (19-41); Mean Corp Hgb Conc 34.1 g/dL (32-36); Mean Corpuscular Hgb 29.5 pg (27.0-32.0); Mean Corpuscular Volume 86.7 fL (80-94); Mean Platelet Vol. 10.4 fl (6.2-12.0); Monocyte# 0.99 X10^3/uL; Monocyte% 8.1 % (0-10); NRBC Flagged by Analyzer 0 % (0-5); Neutrophil # 9.69 X10^3/uL (2.7-7.7); Neutrophil % 79.3 % (47-70); Platelet Count 342 K/mm3 (150-450); RBC Distribution Width SD 40.8 fl (35.1-43.9); Red Blood Count 5.25 M/mm3 (4.6-6.2); White Blood Count 12.2 K/mm3 (4.4-11.0)
[2024-05-05 16:35] LABS: Color, Urine Yellow (Yellow); Glucose, Dipstick Normal (Normal); Ketone-Dipstick Negative (Negative); Leukocyte Esterase-Dipstick Negative /ul (Negative); Nitrite-Dipstick Negative (Negative); Occult Blood-Urine 25 /ul (Negative); Protein-Dipstick 100 mg/dl (Negative); Specific Gravity, Urine 1.015 (1.002-1.030); Urine Bilirubin Dipstick Negative (Negative); Urine Clarity Clear (Clear); Urine Urobilinogen Normal (Normal); Urine pH 6.5 (5.0 - 8.0)
[2024-05-05 16:50] LABS: Red Blood Cells-Urine 0-5 SEEN /hpf (0-5)
[2024-05-05 16:51] LABS: Bacteria 3+ /hpf (None Seen); Mucous, Urine 1+ /hpf (<or=2+); Squamous Epithelial Cells - UA 0-5 SEEN /hpf (0-5)
[2024-05-05 16:57] LABS: ALB/GLOB Ratio 1.3 RATIO (0.9-2.4); AST(SGOT) 28 U/L (15-37); Alanine Aminotransfer ALT/SGPT 46 U/L (16-61); Albumin, Serum 3.9 g/dL (3.2-5.0); Alkaline Phosphatase 103 U/L (45-117); Anion Gap 6 (5-15); BUN 18 mg/dL (7-18); BUN/Creat Ratio 12.3 RATIO (10-20); Calcium,Total 9.1 mg/dL (8.5-10.1); Chloride 106 mmol/L (98-107); Creatinine, Serum 1.46 mg/dL (0.70-1.30); EST Glomerular Filtration Rate 51 mL/min (>60); Est Glom Filt Rate - Afr Amer 62 mL/min (>60); Estimated Creatinine Clearance 58.46 ml/min; Globulin 2.9 g/dL (2.2-4.2); Glucose 103 mg/dL (74-106); Potassium 3.8 mmol/L (3.5-5.1); Protein, Total 6.8 g/dL (6.4-8.2); Sodium Level 139 mmol/L (136-145)
[2024-05-05] MEDS: Morphine 4 MG/ML Syringe IV (17:00)
[2024-05-05] MEDS: HYDROmorphone 1 MG/ML Syringe IV (17:41)
[2024-05-05 18:03] VITALS: BP 136/92; PULSE 77; RESP 18; TEMP 36.6; O2SAT 98
== END 2024-05-05 18:04 | disposition home or self-care (01) ==
PROVIDERS: Emergency Provider Emergency Medicine; Visit Provider Emergency Medicine
DX: R10.9 Unspecified abdominal pain (principal); N20.1 Calculus of ureter; I10 Essential (primary) hypertension; I25.10 Atherosclerotic heart disease of native coronary artery without angina pectoris; N13.4 Hydroureter; N21.0 Calculus in bladder; Z87.891 Personal history of nicotine dependence; E78.00 Pure hypercholesterolemia, unspecified; Z79.82 Long term (current) use of aspirin; Z79.899 Other long term (current) drug therapy; Z98.52 Vasectomy status

== ENCOUNTER → 2024-07-08 | Outpatient (CLI) | payer MEDICARE, OTHER, SELFPAY ==
[2024-07-08 17:56] LABS: Anion Gap 8 (5-15); BUN 18 mg/dL (4-19); BUN/Creat Ratio 16.5 RATIO (10-20); Calcium,Total 9.2 mg/dL (7.6-11.0); Chloride 105 mmol/L (98-108); Creatinine, Serum 1.11 mg/dL (0.70-1.20); EST Glomerular Filtration Rate 73 (>60); Glucose 101 mg/dL (70-99); Potassium 3.6 mmol/L (3.3-5.1); Sodium Level 140 mmol/L (133-145)
== END | disposition home or self-care (01) ==
LOC: LAB 16:18
PROVIDERS: Referring Provider Internal Medicine Cardiovascular Disease; Visit Provider Internal Medicine Cardiovascular Disease
DX: I10 Essential (primary) hypertension (principal); I49.3 Ventricular premature depolarization
CPT/HCPCS: 36415; 80048